=== PATIENT | male | born 1960 | race Caucasian/White ===

== ENCOUNTER 2020-06-23 06:50 | Inpatient (IN) | payer OTHER, SELFPAY ==
[2020-06-23] VITALS (22 sets, daily range): BP systolic 112–181; BP diastolic 82–124; PULSE 83–137; RESP 12–23; TEMP 36.4–38.6; O2SAT 94–99; BMI 24.1
--- NOTE | ~2020-06-23 | XR_ITS ---
EXAMINATION: XR chest 1V portable INDICATION: Fever TECHNIQUE: Portable AP chest at 1604 hours COMPARISON: None available FINDINGS: There are minimal airspace opacities of the left lung base. The right lung is clear. No ple ural effusion or pneumothorax is identified. The cardiomediastinal silhouette is normal. Healed bilat eral rib fractures are noted. IMPRESSION: 1. Left basilar airspace opacity, consistent with atelectasis versus pneumonia. Reviewed, dictated and finalized at location A. [employer]OR OF PHYSICAL SECURITY
--- NOTE | ~2020-06-23 | CT_ITS ---
EXAMINATION: CT brain [facility] EXAM DATE: 06/23/2020 08:14 INDICATION: Fall, head injury. Right frontal forehead laceration TECHNIQUE: Spiral CT of the head was performed without contrast. Axial, coronal and sagittal images were reviewed. The dose-length product (DLP) for this examination was 1513.33 mGy-cm. The exposure was tailored according to patient size, and iterative reconstruction (ASIR) was used as additional do se reduction technique. There is no prior study for comparison. FINDINGS: There is no acute intraparenchymal hemorrhage. No evidence of intraparenchymal brain mass lesion. No evidence of acute infarction. Please note that initial head CT has limited sensitivity f or small or acute infarctions. There is mild prominence of the sulci and ventricles related to cerebr al atrophy. There is intracranial carotid arteriosclerosis. There are no extra-axial collections. There is no mass effect or midline shift. The orbits are unremarkable. Soft tissue is unremarkable . The visualized sinuses and mastoid air cells are well aerated. IMPRESSION: 1. No acute intracranial findings. Reviewed, dictated and finalized at location A. SPLITTER
--- NOTE | 2020-06-23 07:37 | ED.FALL ---
HPI - Fall General Chief Complaint: Fall Stated Complaint: fall/confusion Time Seen by Provider: 06/23/20 07:14 Source: patient Limitations: no limitations History of Present Illness HPI Narrative: 59 m Last night fell @ hotel and hit his head, bit his tongue Denies neck pain or neuro sx Does not think he had LOC or a seizure; no urinary incontinence One prior visit here, was for etoh related fall and hip dislocation Related Data Allergies Allergy/AdvReac Type Severity Reaction Status Date / Time No Known Allergies Allergy Verified 06/23/20 07:00 Review of Systems Constitutional: Constitutional: Denies fever(s) Cardiovascular: Cardiovascular: Denies chest pain Gastrointestinal: Gastrointestinal: Denies vomiting Neurologic: Denies dizziness, Denies syncope, Denies headache(s) and Denies weakness PMFSH Past Medical History Medical History (Updated 06/23/20 @ 11:14 by Negro Velazquez MD) Alcohol abuse Arthritis Dislocation of hip, left, closed Rheumatoid arthritis Previously on Enbrel, but no longer for unclear reasons. Thrombocytopenia Surgical History Surgical History (Updated 03/17/19 @ 20:57 by Reta Kumar PA-C) History of left hip replacement With previous revision. Family History Family History (Updated 03/17/19 @ 17:04 by Wilian Walker RN) Father Suicide Social History Social History (Updated 03/17/19 @ 20:59 by Reta Kumar PA-C) Social History: The patient lives in [place], [place] with his . He designates his , Lenore, as his surrogate decision maker and he wishes to be a full code. He is a lifelong nonsmoker. He tells me he drinks ?3 damian? a day, presumably 3 glasses a day. He denies drug use. Exam Const: General: alert Orientation/consciousness: patient oriented x3 HENMT: Head: contusion and laceration Mouth: Yes Abnormal oral and palatal mucosa present Other: Superficial 1/2 cm laceration to right forehead with slight swelling, and an approximately 2 cm laceration on the right side of the tongue which is either superficial or has already adhered to back together and does not gape apart at all Eyes: EOM: EOMs intact bilaterally Neck: Other: Nontender Resp: Effort & Inspection: normal respiratory effort Auscultation: clear to auscultation bilaterally Cardio: Rate: tachycardic Rhythm: regular rhythm Neuro: General: patient oriented x3 and moves all extremities Course Course Emergency Course: he had a no doubt GTCSz lasting 1-2 minutes w/ urinary incontinence while in the ED Vital Signs Vital signs: Vital Signs Temperature 36.7 C 06/23/20 06:51 Pulse Rate 124 H 06/23/20 06:51 Respiratory Rate 18 06/23/20 06:51 Blood Pressure 164/101 H 06/23/20 06:51 Pulse Oximetry 95 06/23/20 06:51 Temperature 36.7 C 06/23/20 06:51 Pulse Rate 83 06/23/20 11:11 Respiratory Rate 13 06/23/20 11:11 Blood Pressure 158/105 H 06/23/20 11:11 Pulse Oximetry 98 06/23/20 11:11 MDM - Fall Lab Data Result diagrams: 06/23/20 09:04 06/23/20 09:04 Labs: Lab Results 06/23/20 06/23/20 06/23/20 Range/Units 07:51 09:04 09:04 WBC 7.9 (4.5-10.0) K/mm3 RBC 4.28 L (4.6-6.20) M/mm3 Hgb 15.1 (14.0-18.0) g/dL Hct 42.8 (42.0-52.0) % MCV 100.0 (80-100) fl MCH 35.3 H (26-34) pg MCHC 35.3 (32-36) g/dl RDW 12.9 (11.5-14.5) % Plt Count 235 D (150-375) k/mm3 MPV 9.6 (7.4-10.4) fl Immature Gran % (Auto) 0.3 (0-0.5) % Neut % (Auto) 85.4 H (45.5-73.1) % Lymph % (Auto) 8.2 L (18.3-44.2) % Emmet % (Auto) 6.0 (2.6-8.5) % Eos % (Auto) 0.0 (0-4.4) % Baso % (Auto) 0.1 L (0.2-1.2) % Lymph # (Auto) 0.65 L (0.9-3.2) K/mm3 Emmet # (Auto) 0.5 (0.1-0.6) K/mm3 Eos # (Auto) 0.0 (0-0.3) K/mm3 Baso # (Auto) 0.0 (0.0-0.1) K/mm3 Abs Immat Gran (auto) 0.02 (0.00-0.031) K/mm3 Absolute Neuts (auto) 6.7 (1.3-
[2020-06-23 07:54] LABS: Glucose Point of Care 144 (65-105)
[2020-06-23] MEDS: LACTATED RINGERS 1,000 ML 999 ML IV CONT (08:08)
[2020-06-23] MEDS: TETANUS,DIPHTHERIA,AC PERTUSSIS ADULT (0.5 ML) BOOSTRIX IM (08:09)
[2020-06-23] MEDS: PHENobarbitaL sodium (*CRX) 130 MG/ML VIAL 260 MG IV PUSH (09:22)
[2020-06-23 09:35] LABS: Basophils Percent Auto 0.1 % (0.2-1.2); Hematocrit 42.8 % (42.0-52.0); Hemoglobin 15.1 g/dL (14.0-18.0); Immature Granulocyte Absolute 0.02 K/mm3 (0.00-0.031); Immature Granulocyte Percent A 0.3 % (0-0.5); Lymphocytes Absolute Auto 0.65 K/mm3 (0.9-3.2); Lymphocytes Percent Auto 8.2 % (18.3-44.2); Mean Corpuscular HGB Conc 35.3 g/dl (32-36); Mean Corpuscular Hemoglobin 35.3 pg (26-34); Mean Platelet Volume 9.6 fl (7.4-10.4); Monocytes Absolute Auto 0.5 K/mm3 (0.1-0.6); Neutrophils Absolute Auto 6.7 K/mm3 (1.3-6.7); Neutrophils Percent Auto 85.4 % (45.5-73.1); Platelet Count Result 235 k/mm3 (150-375); Red Blood Count 4.28 M/mm3 (4.6-6.20); Red Cell Distribution Width 12.9 % (11.5-14.5); White Blood Count 7.9 K/mm3 (4.5-10.0)
[2020-06-23 10:07] LABS: Anion Gap 15 mmol/L (8-16); Blood Urea Nitrogen 4 mg/dL (9-20); Calcium 8.6 mg/dL (8.4-10.2); Carbon Dioxide 25 mmol/L (22-30); Chloride 96 mmol/L (98-107); Estimated CRCL calculation 126 ml/min; Estimated Glomerular Filt Rate > 60; Glucose 129 mg/dL (75-110); Potassium 2.8 mmol/L (3.4-5.0); Sodium 136 mmol/L (137-145)
--- NOTE | 2020-06-23 10:14 | ECG_ITS ---
Measurements Intervals [place] Rate: 115 P: 55 DC: 169 QRS: 27 QRSD: 84 T: 63 QT: 337 QTc: 467 Interpretive Statements SINUS TACHYCARDIA POSSIBLE LEFT ATRIAL ENLARGEMENT ABNORMAL ECG Electronically Signed On 06-23-2020 18:10:37 ASSISTANT [employer]O CENTER MANAGER by Toy Whitley D.O.
[2020-06-23 10:28] LABS: Alanine Aminotransferase 84 U/L (4-50); Albumin Level 4.5 g/dL (3.5-5.1); Alkaline Phosphatase 119 U/L (38-126); Aspartate Amino Transferase 110 U/L (17-59); Bilirubin,Total 2.2 mg/dL (0.2-1.3); Lipase 60 U/L (23-300)
[2020-06-23] MEDS: THIAMINE HCL 200 MG/2 ML VIAL 500 MG IV PUSH (10:30)
[2020-06-23] MEDS: POTASSIUM CHLORIDE 20 MEQ PACKET (FOR LIQUID) 40 MEQ PO (10:31)
[2020-06-23] MEDS: SODIUM CHLORIDE 0.9% IV 100 ML 200 ML (10:43)
[2020-06-23] MEDS: KCL 20 MEQ/SW 100 ML 100 ML 50 MEQ IVPB (10:43)
[2020-06-23] MEDS: HALOPERIDOL LACTATE 5 MG/ML VIAL IV PUSH (11:07)
[2020-06-23] MEDS: FOLIC ACID 1 MG/0.2 ML INJ IV PUSH (11:08)
[2020-06-23] MEDS: LORazepam INJ (*CRX) 2 MG/ML VIAL 1 MG IV PUSH (12:54)
[2020-06-23] MEDS: ONDANSETRON INJ 4 MG/2 ML VIAL IV PUSH (12:55)
[2020-06-23] MEDS: PHENobarbital (*CRX) 100 MG TABLET PO (13:00)
[2020-06-23] MEDS: LACTATED RINGERS 1,000 ML 125 ML IV CONT (13:02)
[2020-06-23 14:41] LABS: Anion Gap 7 mmol/L (8-16); Blood Urea Nitrogen 3 mg/dL (9-20); Calcium 8.2 mg/dL (8.4-10.2); Carbon Dioxide 26 mmol/L (22-30); Chloride 96 mmol/L (98-107); Estimated CRCL calculation 148 ml/min; Estimated Glomerular Filt Rate > 60; Glucose 110 mg/dL (75-110); Magnesium 1.5 mg/dL (1.6-2.3); Potassium 3.3 mmol/L (3.4-5.0); Sodium 129 mmol/L (137-145)
--- NOTE | 2020-06-23 15:00 | PM.IMHP ---
H&P: HPI History of Present Illness Date/Time: 06/23/20 15:00 Chief Complaint: Fall. Narrative: This is a 59-year-old male with longstanding history of alcoholism and rheumatoid arthritis who presented to the emergency department earlier today with his for evaluation after sustaining a fall at around 05:30 this morning. At the time my evaluation the patient is confused and is not able to provide much in the way of history and as such a majority of the following is obtained via a review of his electronic medical records as well as discussions with his who was at bedside. The patient and his arrived to the area from [place], [place] on Wednesday evening for a visit with family members. He was in his usual state of health at that time but on Wednesday morning the patient's noticed that he seemed a bit shaky which is not unusual for him in the morning as he is a heavy drinker, consuming a ?large box of wine? each day. He did not feel well enough to visit with family members that day so his went about her day and when she return to the hotel he seemed to be a bit confused and was complaining of epigastric pain with nausea and vomiting. She has seen him like this before and was apparently not too concerned. At about 05:30 this morning she heard a loud noise and at that time the patient reported that he had accidentally fallen forward and hit his head on the air conditioning unit. He came back to bed in told her that he was doing okay however when they woke this morning she noticed a large amount of blood around his mouth and on his pillow and saw the laceration on his forehead and thus she brought him in for evaluation. He had a he witnessed seizure in the emergency department and at that time the realized that he probably had upwards of 9 seizures throughout the night but she thought that he was just having ?nightmares? but she now recognizes these were seizures and reports that he was making ?demonic sounds and was gurgling. Prior to last night he has no history of alcohol withdrawal seizure. At the time my evaluation he is somnolent from receiving phenobarbital and haloperidol in the emergency department. He has no real complaints aside from mild pain from hitting his head and biting his tongue. Both the patient and his deny recent illnesses and exposure to COVID-19. Review of Systems Review of Systems: Narrative: A review of systems but was attempted but is unable to be completed accurately due to patient's somnolence and confusion. [facility] Past Medical History Medical History (Updated 06/23/20 @ 22:17 by Reta Kumar PA-C) Alcohol abuse Arthritis Dislocation of hip, left, closed (~02/2019) Rheumatoid arthritis Previously on Enbrel but no longer on any medications for unclear reasons. Thrombocytopenia Surgical History Surgical History (Updated 03/17/19 @ 20:57 by Reta Kumar PA-C) History of left hip replacement With previous revision. Family History Family History Father Suicide Social History Social History (Updated 06/23/20 @ 22:15 by Reta Kumar PA-C) Social History: The patient lives in [place], [place] with his . 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 Social smoker. Heavy alcohol use for many years as per HPI. Occasional marijuana use. His Lenore is his surrogate decision maker and he is listed as a full code. Smoking packs per day: 0.5 Smoking cigarettes per day: 10.0 Years smoked: 5 Smoking pack-years: 2.50 Smoking status: Current some day smoker Tobacco type: cigarettes Alcohol intake: current Drinks per week: 21 Substance use: current Substance use type: marijuana Gender identity (if verbalized by the patient): Male Sexual Orientation (if Verbalized by the Patient): Straight or Heterosexual Spiritual care concerns: No Meds [place]
[2020-06-23 16:07] LABS: Lactic Acid Reflex 1.3 mmol/L (0.7-2.1)
[2020-06-23 16:10] LABS: CRP 1.5 mg/dL (<1.0)
[2020-06-23] MEDS: POTASSIUM CHLORIDE 20 MEQ TABLET PO (16:16)
[2020-06-23] MEDS: SODIUM CHLORIDE 0.9% IV 1,000 ML 100 ML IV CONT (16:18)
[2020-06-23] MEDS: MAGNESIUM SULF 2 GM/WATER 50ML 2 GM/50 ML BAG IVPB (16:24)
[2020-06-23] MEDS: THIAMINE HCL 200 MG/2 ML VIAL 100 MG IV PUSH (16:24)
[2020-06-23 17:21] LABS: Add Urine Microscopic? YES; Appearance Urine Clear (Clear); Bilirubin Urine Negative (Negative); Blood Urine Negative (Negative); Color Urine Yellow (Yellow); Glucose Urine UA Negative (Negative); Ketones Urine Trace mg/dL (Negative); Leukocyte Esterase Ur Negative LEU/UL (Negative); Mucus Urine Rare /lpf; Nitrate Urine Negative (Negative); Protein Urine 1+ mg/dL (Negative); Specific Grav Ur 1.011 (1.001-1.035); Squamous Epithelial Cell Urine Rare /hpf (Few)
--- NOTE | 2020-06-23 17:27 | PC.NURSE ---
Called PA covering pt to convey CIWA of 11, but pt is sleeping. Per her conversation iwth me on pt admission, she would like us to hold ativan if pt is sleeping and appears to be comfortable. Authorized to hold dose. Notified PA that analyzer for tox screen is down; lab states should be up soon and will process shortly.
[2020-06-23 17:31] LABS: Creatine Kinase 543 U/L (55-170)
[2020-06-23 17:45] LABS: Glucose Point of Care 120 (65-105)
[2020-06-23 18:34] LABS: Amphetamine Screen Urine Negative (Negative); Barbiturate Screen Urine Positive (Negative); Benzodiazepines Screen Urine Negative (Negative); Cannabinoid Screen Urine Positive (Negative); Cocaine Screen Urine Negative (Negative); Methadone Screen Urine Negative (Negative); Opiate Screen Urine Negative (Negative); Phencyclidine Screen Urine Negative (Negative)
[2020-06-23] MEDS: CHLORHEXIDINE GLUCONATE 0.12% ORAL RINSE 473 ML BTL (*BKC) 15 ML SWISH/SPIT (18:44)
[2020-06-23] MEDS: AMPICILLIN SULB 1.5 GM/NS 50ML 1.5 GM/50 ML VIAL IVPB (18:46)
[2020-06-23] MEDS: chlordiazePOXIDE (*CRX) 25 MG CAPSULE PO (18:52)
[2020-06-23 19:44] LABS: Sodium 129 mmol/L (137-145)
[2020-06-23] MEDS: FAMOTIDINE 20 MG/2 ML VIAL IV PUSH (21:05)
[2020-06-23 23:06] LABS: Sodium 132 mmol/L (137-145)
[2020-06-23 23:30] LABS: Glucose Point of Care 125 (65-105)
[2020-06-24] VITALS (7 sets, daily range): BP systolic 117–151; BP diastolic 71–94; PULSE 80–100; RESP 16–20; TEMP 36.4–36.7; O2SAT 98–99
[2020-06-24] MEDS: AMPICILLIN SULB 1.5 GM/NS 50ML 1.5 GM/50 ML VIAL IVPB ×4 (00:23→17:11)
[2020-06-24] MEDS: chlordiazePOXIDE (*CRX) 25 MG CAPSULE PO ×4 (00:24→17:12)
[2020-06-24 03:01] LABS: Sodium 133 mmol/L (137-145)
[2020-06-24] MEDS: SODIUM CHLORIDE 0.9% IV 1,000 ML 100 ML IV CONT (05:02)
[2020-06-24 06:45] LABS: Alanine Aminotransferase 66 U/L (4-50); Albumin Level 3.5 g/dL (3.5-5.1); Alkaline Phosphatase 70 U/L (38-126); Anion Gap 3 mmol/L (8-16); Aspartate Amino Transferase 100 U/L (17-59); Bilirubin,Total 1.9 mg/dL (0.2-1.3); Blood Urea Nitrogen 5 mg/dL (9-20); Carbon Dioxide 31 mmol/L (22-30); Chloride 99 mmol/L (98-107); Creatine Kinase 267 U/L (55-170); Estimated CRCL calculation 148 ml/min; Estimated Glomerular Filt Rate > 60; Glucose 97 mg/dL (75-110); Magnesium 1.8 mg/dL (1.6-2.3); Potassium 3.2 mmol/L (3.4-5.0); Sodium 133 mmol/L (137-145)
[2020-06-24 06:56] LABS: Hematocrit 38.7 % (42.0-52.0); Hemoglobin 13.4 g/dL (14.0-18.0); Mean Corpuscular HGB Conc 34.6 g/dl (32-36); Mean Corpuscular Hemoglobin 34.5 pg (26-34); Mean Corpuscular Volume 99.7 fl (80-100); Mean Platelet Volume 9.6 fl (7.4-10.4); Platelet Count Result 162 k/mm3 (150-375); Red Blood Count 3.88 M/mm3 (4.6-6.20); Red Cell Distribution Width 12.6 % (11.5-14.5); White Blood Count 6.3 K/mm3 (4.5-10.0)
[2020-06-24 07:43] LABS: Glucose Point of Care 90 (65-105)
--- NOTE | 2020-06-24 07:59 | WPDCN ---
Assessment and Plan Assessment and plan (1) Laceration of tongue: Code(s): S01.512A - Laceration without foreign body of oral cavity, initial encounter Status: Acute Assessment and Plan: patient has no restrictions. He can use chlorhexidine q.i.d. after meals and before bed. He should follow-up with someone at home for further evaluation and treatment if needed. Tongue was repaired at bedside please see procedure note HPI Data of Consult Date/Time: 06/24/20 07:59 Requesting Physician: Tomas Dinh MD Primary Care Provider: [employer] ASSEMBLER PHYSICIAN Consult Narrative Narrative: Jonah Jackson is a 59 year old male Status post seizure /fall with tongue laceration. ENT consult it for evaluation possible repair. Review of Systems Constitutional: Constitutional: Denies fatigue, Denies fever(s) and Denies lethargy Eyes: Eyes: Denies blurry vision and Denies change in vision ENT: Reports as per HPI Cardiovascular: Cardiovascular: Denies chest pain Respiratory: Respiratory: Denies cough Endocrine: Endocrine: Denies fatigue Hematologic/Lymphatic: Hematologic/Lymphatic: Denies easy bleeding, Denies easy bruising and Denies lymphadenopathy Allergic/Immunologic: Allergic/Immunologic: Denies seasonal rhinorrhea [facility] Past Medical History Medical History (Updated 06/23/20 @ 22:17 by Reta Kumar PA-C) Alcohol abuse Arthritis Dislocation of hip, left, closed (~02/2019) Rheumatoid arthritis Previously on Enbrel but no longer on any medications for unclear reasons. Thrombocytopenia Surgical History Surgical History (Updated 03/17/19 @ 20:57 by Reta Kumar PA-C) History of left hip replacement With previous revision. Family History Family History Father Suicide Social History Social History (Updated 06/23/20 @ 22:15 by Reta Kumar PA-C) Social History: The patient lives in [place], [place] with his . 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 Social smoker. Heavy alcohol use for many years as per HPI. Occasional marijuana use. His Lenore is his surrogate decision maker and he is listed as a full code. Smoking packs per day: 0.5 Smoking cigarettes per day: 10.0 Years smoked: 5 Smoking pack-years: 2.50 Smoking status: Current some day smoker Tobacco type: cigarettes Alcohol intake: current Drinks per week: 21 Substance use: current Substance use type: marijuana Gender identity (if verbalized by the patient): Male Sexual Orientation (if Verbalized by the Patient): Straight or Heterosexual Spiritual care concerns: No Meds Home Medications and Allergies Home Medications Medication Instructions Recorded Confirmed Type naproxen 250 mg PO BID PRN 06/23/20 06/23/20 History Allergies Allergy/AdvReac Type Severity Reaction Status Date / Time No Known Allergies Allergy Verified 06/23/20 07:00 Vital Signs Vital Signs - 24 hr 06/23/20 08:30 06/23/20 09:45 06/23/20 10:08 Temperature Pulse Rate 137 H 130 H 87 Pulse Rate [Left] Respiratory Rate 20 23 H 22 H Blood Pressure 150/98 H 157/110 H Pulse Oximetry 97 06/23/20 10:09 06/23/20 10:45 06/23/20 11:01 Temperature Pulse Rate 116 H 110 H Pulse Rate [Left] Respiratory Rate 17 16 12 Blood Pressure 157/111 H 142/102 H 148/106 H Pulse Oximetry 06/23/20 11:11 06/23/20 12:10 06/23/20 12:30 Temperature 38.1 C H Pulse Rate 83 117 H 122 H Pulse Rate [Left] Respiratory Rate 13 20 20 Blood Pressure 158/105 H 153/102 H 144/94 H Pulse Oximetry 98 97 98 06/23/20 12:37 06/23/20 14:00 06/23/20 16:00 Temperature 38.6 C H Pulse Rate 125 H 125 H Pulse Rate [Left] 122 H 100 Respiratory Rate 20 Blood Pressure 133/85 Pulse Oximetry 97 06/23/20 16:16 06/23/20 16:49 06/23/20 17:00 Temperature 38.6 C H 38.3 C H 38.3 C H Pu
--- NOTE | 2020-06-24 08:01 | PM.PROC ---
Procedure Note - Detailed Date of procedure: 06/24/20 Pre-op diagnosis: alcohol withdrawal/seizure right tongue laceration Post-op diagnosis: same Procedure performed: bedside repair of tongue laceration Description of procedure: consent was obtained. The area was anesthetized with 1% lidocaine with 1 100,000 parts epinephrine. Two very deep 3 0 Vicryl sutures were placed with very good approximation noted. Hemostasis was excellent. I performed all dictated portions. Anesthesia: local Surgeon: Marquez Jimenes MD Complications: No immediate complications Condition: stable Disposition: floor
[2020-06-24] MEDS: CHLORHEXIDINE GLUCONATE 0.12% ORAL RINSE 473 ML BTL (*BKC) 15 ML SWISH/SPIT ×2 (08:36→17:09)
[2020-06-24] MEDS: FAMOTIDINE 20 MG/2 ML VIAL IV PUSH ×2 (08:36→20:27)
[2020-06-24] MEDS: THIAMINE HCL 200 MG/2 ML VIAL 100 MG IV PUSH ×2 (08:37→17:10)
[2020-06-24] MEDS: THERAPEUTIC MULTIVITAMINS/MINERALS TAB (*BKC) 1 TABLET PO (10:13)
[2020-06-24] MEDS: FOLIC ACID 1 MG TABLET PO (10:13)
[2020-06-24 10:53] LABS: Sodium 131 mmol/L (137-145)
[2020-06-24 15:26] LABS: Sodium 131 mmol/L (137-145)
--- NOTE | 2020-06-24 16:31 | PM.IMPN ---
Progress Note: A&P Assessment and Plan (1) Encephalopathy: Code(s): G93.40 - Encephalopathy, unspecified Status: Acute Assessment and Plan: Improved Likely metabolic/toxic Had seizure and ETOH withdrawal Called and gave update. (2) Laceration of tongue: Code(s): S01.512A - Laceration without foreign body of oral cavity, initial encounter Status: Acute Assessment and Plan: S/p repair Appreciate ENT note (3) Alcohol withdrawal seizure: Code(s): F10.239 - Alcohol dependence with withdrawal, unspecified; R56.9 - Unspecified convulsions Status: Acute Assessment and Plan: On CIWA Banana bag (4) Alcohol withdrawal: Code(s): F10.239 - Alcohol dependence with withdrawal, unspecified Status: Acute Assessment and Plan: Appears stable Sitter at bed side (5) Laceration of forehead: Code(s): S01.81XA - Laceration without foreign body of other part of head, initial encounter Status: Acute Assessment and Plan: Local care (6) Elevated LFTs: Code(s): R94.5 - Abnormal results of liver function studies Status: Acute Assessment and Plan: Likely secondary to ETOH Will repeat. (7) Rheumatoid arthritis: Code(s): M06.9 - Rheumatoid arthritis, unspecified Status: Chronic Assessment and Plan: Was on Enbrel Subjective Date/time seen: 06/24/20 16:31 States that he feels well. Review of Systems Review of Systems: Narrative: Denies any issues at this time. Exam Narrative: Exam Narrative: Sitting in bed. Const: General: comfortable, no acute distress, alert and awake Nutritional Appearance: average body habitus Orientation/consciousness: patient oriented x3 HENMT: Head: normal to inspection and normocephalic Ears: hearing grossly normal bilaterally General nose exam: Normal external nose present Face and sinus: normal facial exam Other: tongue laceration s/p repair. Eyes: General: appearance normal, both eyes and all related structures Pupils: Equal, round and reactive pupils present EOM: EOMs intact bilaterally Neck: Neck: no lymphadenopathy, supple and no JVD Resp: Auscultation: clear to auscultation bilaterally Cardio: Jugular venous distension: no JVD Rate: regular rate Rhythm: regular rhythm GI: GI Palp: Yes Soft to palpation and Yes No hepatosplenomegaly present Skin: Rashes: no rashes Wounds: no wounds Neuro: General: patient oriented x3 and CN's II-XI intact bilaterally Cranial nerves: Yes CN's II-XII intact bilaterally and Yes Equal, round and reactive pupils present Cognition (Neuro): normal cognition Speech: normal speech Motor exam (neuro): 5/5 motor strength present throughout Extrem: General: no pedal edema Objective Data Vital Signs Vital Signs: Vital Signs - 24 hr 06/23/20 16:49 06/23/20 17:00 06/23/20 20:00 Temperature 100.9 F H 100.9 F H 98.1 F Pulse Rate 112 H Pulse Rate [Left] 112 H Respiratory Rate 20 Blood Pressure 112/82 Pulse Oximetry 99 06/23/20 23:48 06/23/20 23:58 06/24/20 00:00 Temperature 97.6 F Pulse Rate 95 85 91 Pulse Rate [Left] 90 Respiratory Rate 18 20 Blood Pressure 122/83 Pulse Oximetry 94 94 06/24/20 04:00 06/24/20 07:40 06/24/20 08:00 Temperature 97.5 F L 98.0 F Pulse Rate 86 88 Pulse Rate [Left] 88 88 Respiratory Rate 20 18 Blood Pressure 136/93 H 140/87 Pulse Oximetry 98 99 06/24/20 12:00 Temperature 98.1 F Pulse Rate 94 Pulse Rate [Left] 91 Respiratory Rate 16 Blood Pressure 117/85 Pulse Oximetry Intake/Output Intake/Output: Intake & Output 06/21/20 06/22/20 06/23/20 06/24/20 23:59 23:59 23:59 23:59 Intake Total 2180 890 Output Total 625 1200 Balance 1555 -310 Meds/Results Medications: Active Medications Generic Name Dose Route Start Last Admin Trade Name Freq PRN Reason Stop Dose Admin Acetaminophen 650 mg 06/23/20 10:58 Acetaminophen 325
[2020-06-24 17:17] LABS: Glucose Point of Care 103 (65-105)
[2020-06-24 17:28] LABS: Glucose Point of Care 113 (65-105)
[2020-06-24 21:45] LABS: Glucose Point of Care 95 (65-105)
[2020-06-25] VITALS: BP 136/89; PULSE 83; PULSE 87; RESP 16; TEMP 36; O2SAT 98
[2020-06-25] MEDS: chlordiazePOXIDE (*CRX) 25 MG CAPSULE PO ×2 (00:27→05:42)
[2020-06-25] MEDS: AMPICILLIN SULB 1.5 GM/NS 50ML 1.5 GM/50 ML VIAL IVPB ×3 (00:27→12:52)
[2020-06-25 04:00] VITALS: BP 134/95; PULSE 84; RESP 16; TEMP 36.4; O2SAT 99
--- NOTE | 2020-06-25 06:42 | PC.NURSE ---
Pt had one episode of confusion where patient did not realize where he was and tried to get out of bed. Patient was easily and quickly reoriented. Patient for most of shift was alert and oriented.
[2020-06-25 07:40] VITALS: BP 132/95; PULSE 81
[2020-06-25 08:00] VITALS: BP 132/95; PULSE 81; RESP 16; TEMP 36.7; O2SAT 98
[2020-06-25 08:10] LABS: Glucose Point of Care 75 (65-105)
[2020-06-25] MEDS: THIAMINE HCL 200 MG/2 ML VIAL 100 MG IV PUSH (08:21)
[2020-06-25] MEDS: FOLIC ACID 1 MG TABLET PO (08:21)
[2020-06-25] MEDS: THERAPEUTIC MULTIVITAMINS/MINERALS TAB (*BKC) 1 TABLET PO (08:21)
[2020-06-25] MEDS: CHLORHEXIDINE GLUCONATE 0.12% ORAL RINSE 473 ML BTL (*BKC) 15 ML SWISH/SPIT (08:21)
[2020-06-25] MEDS: FAMOTIDINE 20 MG/2 ML VIAL IV PUSH (08:21)
[2020-06-25 10:21] LABS: Basophils Percent Auto 0.5 % (0.2-1.2); Eosinophils Absolute Auto 0.1 K/mm3 (0-0.3); Eosinophils Percent Auto 0.9 % (0-4.4); Hematocrit 44.3 % (42.0-52.0); Hemoglobin 15.3 g/dL (14.0-18.0); Immature Granulocyte Absolute 0.01 K/mm3 (0.00-0.031); Immature Granulocyte Percent A 0.1 % (0-0.5); Lymphocytes Absolute Auto 1.38 K/mm3 (0.9-3.2); Lymphocytes Percent Auto 18.4 % (18.3-44.2); Mean Corpuscular HGB Conc 34.5 g/dl (32-36); Mean Corpuscular Hemoglobin 34.3 pg (26-34); Mean Corpuscular Volume 99.3 fl (80-100); Mean Platelet Volume 9.5 fl (7.4-10.4); Monocytes Absolute Auto 0.5 K/mm3 (0.1-0.6); Monocytes Percent Auto 6.8 % (2.6-8.5); Neutrophils Absolute Auto 5.5 K/mm3 (1.3-6.7); Neutrophils Percent Auto 73.3 % (45.5-73.1); Platelet Count Result 149 k/mm3 (150-375); Red Blood Count 4.46 M/mm3 (4.6-6.20); Red Cell Distribution Width 12.4 % (11.5-14.5); White Blood Count 7.5 K/mm3 (4.5-10.0)
[2020-06-25 10:33] LABS: Anion Gap 7 mmol/L (8-16); Blood Urea Nitrogen 10 mg/dL (9-20); Calcium 8.4 mg/dL (8.4-10.2); Carbon Dioxide 29 mmol/L (22-30); Chloride 100 mmol/L (98-107); Estimated CRCL calculation 109 ml/min; Estimated Glomerular Filt Rate > 60; Glucose 93 mg/dL (75-110); Magnesium 1.8 mg/dL (1.6-2.3); Sodium 136 mmol/L (137-145)
[2020-06-25] MEDS: POTASSIUM CHLORIDE 20 MEQ TABLET 60 MEQ PO (11:07)
[2020-06-25] MEDS: MAGNESIUM OXIDE 400 MG TABLET PO (11:31)
[2020-06-25 12:00] VITALS: BP 123/84; PULSE 100; PULSE 105; RESP 18; TEMP 36.6; O2SAT 99
[2020-06-25 12:10] LABS: Glucose Point of Care 85 (65-105)
--- NOTE | 2020-06-25 14:32 | PM.DS ---
DS: Admitting Diagnosis Admitting Diagnosis Admitting Diagnosis: Fall, alcohol withdrawal seizure DS: Discharge Diagnosis Discharge Diagnosis (1) Encephalopathy: Code(s): G93.40 - Encephalopathy, unspecified Status: Acute Assessment and Plan: Date of Admission 06/23/20 Date of Discharge 06/25/20 Mr. Jackson is a 59yo M with history of alcohol use disorder and rheumatoid arthritis who presented to the ED after a fall overnight. Him and his are in town from [place] visiting family in the area, overnight he fell and hit his face on the air conditioning unit in the hotel room. He is known to drink at least one large box of wine daily. noticed a large amount of blood around his mouth and on his pillow and saw the laceration on his forehead and thus she brought him in for evaluation. He had a he witnessed seizure in the emergency department and at that time the realized that he probably had upwards of 9 seizures throughout the night but she thought that he was just having ?nightmares? but she now recognizes these were seizures. Patient sustained a laceration to the right side of his tongue which was sutured by ENT, Dr Jimenes. Patient is now feeling back to his baseline with no further seizure activity. It is expected that patient's seizure activity was related to alcohol withdrawal. Day of discharge he is hemodynamically stable without signs or symptoms of withdrawal and is adamant about discharge today. He was treated with IV antibiotics for a possible aspiration pneumonia due to CXR and large amount of blood from his tongue laceration. He is provided chlorhexidine mouthwash as well and encouraged to follow up with PCP promptly on his arrival back home. Potassium and magnesium low and replaced, discharged with supplementation. Stable for discharge 06/25/20. (2) Laceration of tongue: Code(s): S01.512A - Laceration without foreign body of oral cavity, initial encounter Status: Acute Assessment and Plan: S/p repair, sutured by ENT Dr Coppola. Continue Chlorhexidine mouthwash after meals and at bedtime. (3) Alcohol withdrawal seizure: Code(s): F10.239 - Alcohol dependence with withdrawal, unspecified; R56.9 - Unspecified convulsions Status: Acute Assessment and Plan: No further seizure activity after ED. (4) Alcohol withdrawal: Code(s): F10.239 - Alcohol dependence with withdrawal, unspecified Status: Acute Assessment and Plan: Stable. (5) Laceration of forehead: Code(s): S01.81XA - Laceration without foreign body of other part of head, initial encounter Status: Acute Assessment and Plan: Local wound care provided. (6) Elevated LFTs: Code(s): R94.5 - Abnormal results of liver function studies Status: Acute Assessment and Plan: Likely secondary to ETOH. Follow up PCP. (7) Rheumatoid arthritis: Code(s): M06.9 - Rheumatoid arthritis, unspecified Status: Chronic Assessment and Plan: Was on Enbrel DS: Summary Hospital Course Hospital Course: See above Time Spent with Patient Time attestation: Total time spent providing and/or coordinating discharge services: 35 minutes Exam Narrative: Exam Narrative: General: Male sitting up in bedside chair in no acute distress, eating BBQ brought in by with at bedside. HEENT: Normocephalic, small healing laceration to right forehead 1cm, EOMI, oral mucosa moist. Sutures to tongue laceration. Cardiovascular: Rate and rhythm are regular. Respiratory: Lungs clear to auscultation bilaterally. Respirations even and non-labored. Abdomen: Soft, non-tender, non-
[2020-06-29 22:53] LABS: Methyl Alcohol Level None Detected (None Detected)
== END 2020-06-25 15:10 | disposition home or self-care (01) | DRG 897 ==
LOC: ANHED 11:47 → ANH3MEDSUR 16:21
PROVIDERS: Physician Assistant; Admitting Provider Internal Medicine; Emergency Provider Emergency Medicine; Visit Provider Physician Assistant
DX: F10.239 Alcohol dependence with withdrawal, unspecified (principal); G40.89 Other seizures; G93.40 Encephalopathy, unspecified; M06.9 Rheumatoid arthritis, unspecified; E87.6 Hypokalemia; S01.81XA Laceration without foreign body of other part of head, initial encounter; S01.512A Laceration without foreign body of oral cavity, initial encounter; W18.39XA Other fall on same level, initial encounter; Z96.642 Presence of left artificial hip joint; F17.210 Nicotine dependence, cigarettes, uncomplicated
CPT/HCPCS: 36415; 70450; 71045; 80048; 80076; 80307; 81001; 82550; 82948; 83605; 83690; 83735; 84295; 84600; 85025; 85027; 86140; 87040; 90471; 90715; 93005; 96361; 96374; 96375; 99285; A4248; A9270; J0131; J0295; J1630; J2060; J2405; J2560; J3411; J3475; J3480; J7030; J7120